=== PATIENT | male | born 1975 | race Caucasian/White ===

== ENCOUNTER 2016-09-05 15:03 | Emergency (ER) | payer OTHER ==
[~2016-09-05] VITALS: Ht 180.3 cm; Wt 109.0 kg
[~2016-09-05 15:03] MED LIST: DIAZ5 PO; GABA300C3 PO; NORC7.5T PO; SOMA350T PO
[2016-09-05 15:06] VITALS: BP 140/86; PULSE 106; RESP 20; TEMP 97.9; O2SAT 94
[2016-09-05] MEDS ORDERED: SODIUM CHLOR 0.9% 1000 ML INJ 1,000 ML IV SCH (15:54)
[2016-09-05] MEDS ORDERED: ONDANSETRON HCL 4 MG/2 ML VIAL IVP ONE (16:00)
[2016-09-05] MEDS ORDERED: MORPHINE SULFATE 4 MG/ML INJ IV PUSH ONE (16:00)
[2016-09-05] MEDS ORDERED: SODIUM CHLORIDE 0.9% FLUSH 5 ML FLUSH IVF PRN (16:00)
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
[2016-09-05 16:31] LABS: AUTOMATED NEUTROPHIL # 4.3 TH/MM3 (1.8-7.7); BASOPHIL # 0.1 TH/MM3 (0-0.2); BASOPHIL % 0.9 % (0.0-2.0); EOSINOPHIL # 0.3 TH/MM3 (0-0.4); EOSINOPHIL % 3.6 % (0.0-4.0); HEMATOCRIT 39.6 % (39.0-51.0); HEMO FLAGS DIFF FINAL; LYMPH % 35.6 % (9.0-44.0); LYMPHOCYTE # 2.9 TH/MM3 (1.0-4.8); MEAN CELL VOLUME 92.7 FL (80.0-100.0); MEAN CORPUSCULAR HEMOGLOBIN 32.6 PG (27.0-34.0); MEAN CORPUSCULAR HGB CONC 35.1 % (32.0-36.0); MONO % 6.5 % (0.0-8.0); NEUT % 53.4 % (16.0-70.0); PLATELET COUNT 241 TH/MM3 (150-450); RED BLOOD COUNT 4.28 MIL/MM3 (4.50-5.90); RED CELL DISTRIBUTION WIDTH 12.8 % (11.6-17.2)
[2016-09-05 16:57] LABS: BICARBONATE 27.1 MEQ/L (21.0-32.0)
[2016-09-05] MEDS ORDERED: HYDROmorphone HCL PF 1 MG/ML VIAL IV PUSH ONE ×2 (17:00→18:15)
[2016-09-05] MEDS ORDERED: GADODIAMIDE PF 287 MG/ML 20 ML VIAL (for RAD MRI) IV ONE (17:23)
--- NOTE | 2016-09-05 17:59 | RADRPT ---
EXAM DATE/TIME: 09/05/2016 17:09 [facility] COMPARISON: No previous studies available for comparison. [facility], MRI Lumbar spine w/o August 17, 2016 INDICATIONS : Low back and bilateral leg pain. CONTRAST: 20 cc Omniscan (gadodiamide) IV MEDICAL HISTORY : None. SURGICAL HISTORY : Fusion, lumbar. ENCOUNTER: Initial ACUITY: 1 day PAIN SCORE: 10/10 LOCATION: Low back TECHNIQUE: Multiplanar multisequence MRI of the lumbar spine was performed with and without contrast. FINDINGS: The most caudal appearing lumbar vertebra is numbered as L5. VERTEBRAE: Homogeneous signal. Normal alignment. CONUS: Normal level and configuration. POST CONTRAST: No abnormal areas of contrast enhancement are seen. T12-L1: The thecal sac has a normal diameter. No evidence of disc bulge or protrusion. The neural foramina are patent bilaterally. L1-L2: The thecal sac has a normal diameter. No evidence of disc bulge or protrusion. The neural foramina are patent bilaterally. L2-L3: The thecal sac has a normal diameter. No evidence of disc bulge or protrusion. The neural foramina are patent bilaterally. L3-L4: Moderate broad-based protrusion more sensitive to the right abuts the ventral thecal sac and causes m ild canal stenosis.. The neural foramina are patent bilaterally. L4-L5: Fusion. No evidence of disc bulge or protrusion. The neural foramina are patent bilaterally. L5-S1: Fusion. No evidence of disc bulge or protrusion. The neural foramina are patent bilaterally. CONCLUSION: 1. Moderate broad-based protrusion more eccentric to the right at L3-4 causes mild canal stenosis. 2. Fusion L4-5 and L5-S1 levels without canal stenosis. Donte Matamoros MD on September 05, 2016 at 17:52 Board Certified Radiologist. This report was verified electronically.
[2016-09-05] MEDS ORDERED: DEXAMETHASONE SOD PHOS 4 MG/ML VIAL IV PUSH ONE (18:15)
[2016-09-05] MEDS ORDERED: ROBA500T PO (18:15)
[2016-09-05] MEDS ORDERED: MEDR4PAK PO (18:15)
[2016-09-05] MEDS ORDERED: METHOCARBAMOL INJ 1,000 MG in SODIUM CHLOR 0.9% 250 ML INJ 250 ML IV ONE (18:15)
== END 2016-09-05 19:53 | disposition home or self-care (01) ==
LOC: NEPB 15:03
DX: M54.5 Low back pain (principal); G89.29 Other chronic pain; Z87.39 Personal history of other diseases of the musculoskeletal system and connective tissue; Z86.69 Personal history of other diseases of the nervous system and sense organs; Z86.59 Personal history of other mental and behavioral disorders
CPT/HCPCS: 72158; 80048; 85025; 96361; 96374; 96375; 96376; 99284; A9579; J1100; J1170; J2270; J2405; J2800; J7030; J7050

== ENCOUNTER 2016-10-09 09:52 | Emergency (ER) | payer OTHER ==
[~2016-10-09] VITALS: Ht 180.3 cm; Wt 110.0 kg
[~2016-10-09 09:52] MED LIST changes: -DIAZ5 PO; -GABA300C3 PO; +MEDR4PAK PO; -NORC7.5T PO; +ROBA500T PO; -SOMA350T PO
[2016-10-09 09:58] VITALS: BP 183/107; PULSE 112; RESP 24; TEMP 97.6; O2SAT 96
--- NOTE | 2016-10-09 10:13 | PD ---
Physical Exam Date Seen by Provider: Oct 09, 2016 Time Seen by Provider: 10:08 Narrative Pt is a 40 year old male presenting to the ED with c/o disorientation, dizzy. No LOC, no chest pain, SOB. 2 weeks ago pt states he was stressed and didn't sleep for 3 days. No other complaints at this time. HR and BP elevated with no cardiac history and no feelings of palpitations. Pt in no acute distress, accompanied by co-worker. Pt awaiting bed placement. EKG ordered. Data Data Last Documented VS Vital Signs Date Time Temp Pulse Resp B/P Pulse Ox O2 Delivery O2 Flow Rate FiO2 10/09/16 09:58 97.6 112 24 183/107 96 Room Air [facility] Supervised Visit with TUCKER: Kathryn Seaman Oct 09, 2016 10:13
[2016-10-09] MEDS ORDERED: OXYC-428 PO (10:46)
[2016-10-09] MEDS ORDERED: OXYC-404 PO (10:48)
[2016-10-09] MEDS ORDERED: BACL20TA PO (10:48)
[2016-10-09] MEDS ORDERED: LORA-474 PO (10:49)
[2016-10-09] MEDS ORDERED: SODIUM CHLOR 0.9% 1000 ML INJ 1,000 ML IV SCH (11:07)
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
[2016-10-09] MEDS ORDERED: SODIUM CHLORIDE 0.9% FLUSH 10 ML FLUSH IVF PRN (11:15)
[2016-10-09 11:41] LABS: AUTOMATED NEUTROPHIL # 4.7 TH/MM3 (1.8-7.7); BASOPHIL # 0.1 TH/MM3 (0-0.2); BASOPHIL % 0.7 % (0.0-2.0); EOSINOPHIL # 0.3 TH/MM3 (0-0.4); EOSINOPHIL % 3.5 % (0.0-4.0); HEMATOCRIT 41.3 % (39.0-51.0); HEMO FLAGS DIFF FINAL; LYMPH % 28.1 % (9.0-44.0); LYMPHOCYTE # 2.2 TH/MM3 (1.0-4.8); MEAN CELL VOLUME 91.3 FL (80.0-100.0); MEAN CORPUSCULAR HEMOGLOBIN 32.2 PG (27.0-34.0); MEAN CORPUSCULAR HGB CONC 35.3 % (32.0-36.0); MONO % 6.8 % (0.0-8.0); NEUT % 60.9 % (16.0-70.0); PLATELET COUNT 214 TH/MM3 (150-450); RED BLOOD COUNT 4.53 MIL/MM3 (4.50-5.90); RED CELL DISTRIBUTION WIDTH 12.9 % (11.6-17.2); WHITE BLOOD COUNT 7.7 TH/MM3 (4.0-11.0)
--- NOTE | 2016-10-09 11:49 | RADRPT ---
EXAM DATE/TIME: 10/09/2016 11:31 [facility] COMPARISON: No previous studies available for comparison. INDICATIONS : Dizziness, disorientation. RADIATION DOSE: 56.35 CTDIvol (mGy) MEDICAL HISTORY : None SURGICAL HISTORY : None. ENCOUNTER: Initial ACUITY: 2 weeks PAIN SCALE: 0/10 LOCATION: cranial TECHNIQUE: Multiple contiguous axial images were obtained of the head. Using automated exposure control and adj ustment of the mA and/or kV according to patient size, radiation dose was kept as low as reasonably a chievable to obtain optimal diagnostic quality images. FINDINGS: CEREBRUM: The ventricles are normal for age. No evidence of midline shift, mass lesion, hemorrhage or acute in farction. No extra-axial fluid collections are seen. POSTERIOR FOSSA: The cerebellum and brainstem are intact. The 4th ventricle is midline. The cerebellopontine angle i s unremarkable. EXTRACRANIAL: The visualized portion of the orbits is intact. SKULL: The calvaria is intact. No evidence of skull fracture. CONCLUSION: Normal examination. Bassem Serrano Jr., MD on October 09, 2016 at 11:45 Board Certified Radiologist. This report was verified electronically.
[2016-10-09 12:00] VITALS: BP 134/77; PULSE 75; RESP 16; O2SAT 95
[2016-10-09 12:24] LABS: ALT (GPT) 73 U/L (12-78); ANION GAP 7 MEQ/L (5-15); AST (GOT) 41 U/L (15-37); BICARBONATE 26.4 MEQ/L (21.0-32.0); BLOOD UREA NITROGEN 12 MG/DL (7-18); CHLORIDE 108 MEQ/L (98-107); GLOMERULAR FILTRATION RATE 103 ML/MIN (>89); POTASSIUM 4.1 MEQ/L (3.5-5.1); SODIUM (NA) 141 MEQ/L (136-145)
[2016-10-09 12:34] LABS: ALKALINE PHOSPHATASE 82 U/L (45-117); CREATINE KINASE 136 U/L (39-308); TOTAL BILIRUBIN ADULT 0.2 MG/DL (0.2-1.0)
[2016-10-09] MEDS ORDERED: LACT10SO PO (12:51)
[2016-10-09 14:00] VITALS: BP 114/73; PULSE 68; RESP 14; O2SAT 97
--- NOTE | 2016-10-09 16:39 | EKG ---
Date Performed: 10/09/2016 Time Performed: 10:26:56 PTAGE: 40 years EKG: Sinus rhythm NONSPECIFIC T-WAVE ABNORMALITY BORDERLINE ECG Compared to prior tracing no significant change PREVIOUS TRACING : 04/11/2014 10.28 DOCTOR: Marylin Arcos Interpretating Date/Time 10/09/2016 16:37:16
== END 2016-10-09 14:38 | disposition home or self-care (01) ==
LOC: NEPE 09:52
DX: R41.82 Altered mental status, unspecified (principal); E72.20 Disorder of urea cycle metabolism, unspecified; R94.31 Abnormal electrocardiogram [ECG] [EKG]
CPT/HCPCS: 70450; 80053; 82140; 82550; 84443; 84484; 85025; 93005; 96360; 99285; J7030

== ENCOUNTER 2017-07-13 10:47 | Emergency (ER) | payer OTHER ==
[~2017-07-13] VITALS: Ht 180.3 cm; Wt 112.0 kg
[~2017-07-13 10:47] MED LIST changes: +AMBI10TA PO; +COLC1CAP3 PO; +DOXY100C PO; +HYDR-3366 PO; +IBUP-232 PO; -MEDR4PAK PO; -ROBA500T PO; +WELL200T PO; +XANA1TAB2 PO
[2017-07-13 10:55] VITALS: BP 178/80; PULSE 111; RESP 17; TEMP 99; O2SAT 98
[2017-07-13] MEDS ORDERED: WELLTAB39 PO (11:10)
[2017-07-13] MEDS ORDERED: ALPR2TAB3 PO (11:10)
[2017-07-13] MEDS ORDERED: SODIUM CHLOR 0.9% 1000 ML INJ 1,000 ML IV ONE ×2 (11:45)
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
[2017-07-13 12:15] LABS: AUTOMATED NEUTROPHIL # 3.8 TH/MM3 (1.8-7.7); BASOPHIL # 0.1 TH/MM3 (0-0.2); BASOPHIL % 2.5 % (0.0-2.0); EOSINOPHIL % 0.3 % (0.0-4.0); HEMATOCRIT 41.5 % (39.0-51.0); HEMOGLOBIN 13.8 GM/DL (13.0-17.0); LYMPH % 14.9 % (9.0-44.0); LYMPHOCYTE # 0.8 TH/MM3 (1.0-4.8); MEAN CELL VOLUME 95.2 FL (80.0-100.0); MEAN CORPUSCULAR HEMOGLOBIN 31.6 PG (27.0-34.0); MEAN CORPUSCULAR HGB CONC 33.2 % (32.0-36.0); MEAN PLATELET VOLUME 9.1 FL (7.0-11.0); MONO % 12.3 % (0.0-8.0); MONOCYTE # 0.7 TH/MM3 (0-0.9); PLATELET COUNT 184 TH/MM3 (150-450); RED BLOOD COUNT 4.36 MIL/MM3 (4.50-5.90); RED CELL DISTRIBUTION WIDTH 12.4 % (11.6-17.2); WHITE BLOOD COUNT 5.4 TH/MM3 (4.0-11.0)
[2017-07-13 12:22] LABS: CHLORIDE 100 MEQ/L (98-107); SODIUM (NA) 132 MEQ/L (136-145)
[2017-07-13 12:26] LABS: ALBUMIN 3.5 GM/DL (3.4-5.0); BICARBONATE 21.2 MEQ/L (21.0-32.0); BLOOD UREA NITROGEN 14 MG/DL (7-18); GLUCOSE,RANDOM 108 MG/DL (74-106); MAGNESIUM 2.1 MG/DL (1.5-2.5)
[2017-07-13 12:27] LABS: BILIRUBIN, URINE NEG (NEG); BLOOD, URINE NEG (NEG); GLUCOSE,URINE NEG (NEG); KETONE, URINE 15 mg/dL (NEG); NITRITE,URINE NEG (NEG); PH, URINE 5.5 (5.0-8.5); URINE LEUKOCYTE ESTERASE NEG (NEG)
[2017-07-13 12:29] LABS: ALT (GPT) 57 U/L (12-78); AST (GOT) 75 U/L (15-37); GLOMERULAR FILTRATION RATE 93 ML/MIN (>89)
[2017-07-13 12:30] LABS: TOTAL BILIRUBIN ADULT 0.4 MG/DL (0.2-1.0)
[2017-07-13 12:31] LABS: TOTAL PROTEIN 7.4 GM/DL (6.4-8.2)
[2017-07-13 12:32] LABS: ALKALINE PHOSPHATASE 78 U/L (45-117)
[2017-07-13 12:36] LABS: URINE COLOR YELLOW (YELLW/STRAW)
[2017-07-13 12:37] LABS: MUCUS URINE RARE /lpf (OCC)
[2017-07-13 12:40] LABS: BACTERIA, URINE RARE /hpf; SQUAMOUS EPITHELIAL CELL URINE 0-3 /hpf (0-5); WHITE BLOOD CELL CAST, URINE 0-1 /lpf; WHITE BLOOD CELL CLUMPS OCC
[2017-07-13 12:44] VITALS: BP 153/95; PULSE 104; O2SAT 99
[2017-07-13] MEDS ORDERED: ONDANSETRON HCL 4 MG/2 ML VIAL IV PUSH ONE (13:00)
[2017-07-13] MEDS ORDERED: HYDROmorphone HCL PF 2 MG/ML VIAL IV PUSH ONE ×2 (13:00→14:00)
[2017-07-13] MEDS ORDERED: OSEL75 PO (13:50)
--- NOTE | 2017-07-13 14:21 | RADRPT ---
EXAM DATE/TIME: 07/13/2017 13:29 [facility] COMPARISON: CHEST PA & LAT, July 01, 2017, 11:41. INDICATIONS : Fever and body aches for 5 days. MEDICAL HISTORY : None. SURGICAL HISTORY : Fusion, thoracic. ENCOUNTER: Initial ACUITY: 4 - 6 days PAIN SCORE: 8/10 LOCATION: Bilateral chest FINDINGS: The lungs are clear without infiltrate, nodule, or mass. There is no appreciable pleural effusion fo r technique. Heart and mediastinum are unremarkable. CONCLUSION: No acute cardiopulmonary disease. Hero Zepeda MD on July 13, 2017 at 14:18 Board Certified Radiologist. This report was verified electronically.
== END 2017-07-13 14:32 | disposition home or self-care (01) ==
LOC: PHED 10:47
DX: B34.9 Viral infection, unspecified (principal)
CPT/HCPCS: 71046; 80053; 81001; 82550; 82552; 83605; 83735; 84443; 85025; 87040; 87086; 87804; 96361; 96374; 96375; 96376; 99284; J1170; J2405; J7030